=== PATIENT | female | born 2000 | race Caucasian/White ===

== ENCOUNTER → 2025-05-23 | Outpatient (REF) | payer OTHER | LOC: M LAB REF 13:05 | PROVIDERS: ATTEND Nurse Practitioner Adult Health | DX: R11.0 Nausea (principal) ==

== ENCOUNTER → 2025-05-23 | Outpatient (CLI) | payer OTHER | LOC: M RAD 13:21 | PROVIDERS: ATTEND Nurse Practitioner Adult Health | DX: R11.0 Nausea (principal) ==